=== PATIENT | male | born 1965 ===

== ENCOUNTER 2018-07-21 16:53 | Emergency (ER) | payer OTHER ==
--- NOTE | 2018-07-21 17:15 | ED PDOC ---
HPI: Psych/Substance Abuse Time Seen by Provider: 07/21/18 16:57 Chief Complaint (Nursing): Medical Clearance Chief Complaint (Provider): Medical Clearance History Per: Patient History/Exam Limitations: no limitations Onset/Duration Of Symptoms: Days (x1) Current Symptoms Are (Timing): Still Present Additional Complaint(s): 52 year old male arrives to ED in [place] police custody for psychiatric and medical clearance. Patient complaints of left-sided shoulder and upper back pain sustained during arrest this morning. He denies numbness, weakness, limitation of movements, previous psych Hx, suicidal or homicidal ideation. PCP: none provided Past Medical History Reviewed: Historical Data, Nursing Documentation, Vital Signs Vital Signs: Last Vital Signs Temp 97.5 F L 07/21/18 16:58 Pulse 101 H 07/21/18 16:58 Resp 17 07/21/18 16:58 BP 132/97 H 07/21/18 16:58 Pulse Ox 100 07/21/18 16:58 - Medical History PMH: No Chronic Diseases - Surgical History Surgical History: No Surg Hx - Family History Family History: States: Unknown Family Hx - Social History Current smoker - smoking cessation education provided: Yes (half pack/daily) Alcohol: Occasional Drugs: Cocaine - Allergies Allergies/Adverse Reactions: Allergies Allergy/AdvReac Type Severity Reaction Status Date / Time No Known Allergies Allergy Verified 07/21/18 17:11 Review of Systems ROS Statement: Except As Marked, All Systems Reviewed And Found Negative Musculoskeletal: Positive for: Shoulder Pain (left-sided), Back Pain (upper) Neurological: Negative for: Weakness, Numbness Physical Exam - Reviewed Nursing Documentation Reviewed: Yes Vital Signs Reviewed: Yes - Physical Exam Appears: Positive for: No Acute Distress Head Exam: Positive for: ATRAUMATIC, NORMAL INSPECTION, NORMOCEPHALIC Skin: Positive for: Normal Color Eye Exam: Positive for: Normal appearance ENT: Positive for: Normal ENT Inspection Neck: Positive for: Normal, Painless ROM, Supple Cardiovascular/Chest: Positive for: Regular Rate, Rhythm Respiratory: Positive for: Normal Breath Sounds. Negative for: Respiratory Distress Pulses-Radial (L): 2+ Extremity: Positive for: Normal ROM (left shoulder, elbow, and wrist with distal sensation intact), Capillary Refill (< 2 seconds to left arm). Negative for: Deformity (left shoulder, elbow, and wrist) Neurologic/Psych: Positive for: Alert, Oriented. Negative for: Motor/Sensory Deficits - ECG O2 Sat by Pulse Oximetry: 100 (RA) Pulse Ox Interpretation: Normal Medical Decision Making Medical Decision Making: Time: 1710 Initial Plan: * Crisis evaluation * Motrin 600mg PO * XR left shoulder Time: 1727 --XR left shoulder FINDINGS: BONES: Bone alignment and mineralization are normal. There is no acute displaced fracture or bone destruction. JOINTS: The glenohumeral and acromioclavicular joints are preserved. No significant degenerative osteoarthrosis. SOFT TISSUES: Normal. OTHER FINDINGS: None. IMPRESSION: No acute displaced fracture or dislocation. Time: 1821 --Evaluation completed by medical case worker. Patient is psychiatrically cleared, as per Dr. Jefferson. Upon provider re-evaluation, patient is medically stable and requires no further treatment in the ED at this time. Patient will be discharged to [facility] for incarceration. Counseling was provided and all questions were answered regarding diagnosis. Return precautions discussed. Clinical Impression: Left shoulder pain; Adjustment disorder Scribe Attestation: Documented by Marleny Lazaro, acting as a scribe for Madelin Merida PA-C. Provider Scribe Attestation: All medical record entries made by the Scribe were at my direction and personally dictated by me. I have reviewed the chart and agree that the record accurately reflects my personal performance of the history, physical exam, medical decision making, and the department course for this patient. I have also personally directed, reviewed, and agree with the discharge instructions and disposition. Disposition - Clinical Impression Clinical Impression: Left shoulder pain, Adjustment disorder - Patient ED Disposition Is Patient to be Admitted: No Counseled Patient/Family Regarding: Studies Performed, Diagnosis, Need For Followup - Disposition Referrals: [facility] [Outside] Disposition: Discharged/Transfer to Law Enforcement Disposition Time: 18:22 Condition: STABLE Additional Instructions: Patient medically and psychiatrically cleared for incarceration Instructions: Adjustment Disorder, Shoulder Pain (DC) Print Language: ITALIAN
--- NOTE | 2018-07-21 18:12 | RAD ---
Date of service: 07/21/2018 PROCEDURE: Radiographs of the left shoulder HISTORY: pain COMPARISON: No prior. FINDINGS: BONES: Bone alignment and mineralization are normal. There is no acute displaced fracture or bone destruction. JOINTS: The glenohumeral and acromioclavicular joints are preserved. No significant degenerative osteoarthrosis. SOFT TISSUES: Normal. OTHER FINDINGS: None. IMPRESSION: No acute displaced fracture or dislocation.
[2018-07-21 18:32] VITALS: PULSE 81; RESP 18; TEMP 98
[2018-07-21 19:30] VITALS: BP 122/68; O2SAT 98
== END 2018-07-21 19:00 ==
LOC: H.ER 16:53
DX: M25.512 Pain in left shoulder (principal); F43.20 Adjustment disorder, unspecified; F17.200 Nicotine dependence, unspecified, uncomplicated; Z00.8 Encounter for other general examination